=== PATIENT | female | born 1935 | race Caucasian/White ===

== ENCOUNTER 2018-11-30 14:53 | Inpatient (IN) | payer MEDICARE, OTHER ==
--- NOTE | 2018-11-30 14:54 | EDM.PDOC ---
ED HPI GENERAL MEDICAL PROBLEM - General Chief Complaint: Gastrointestinal Problem Stated Complaint: AMBULANCE Time Seen by Provider: 11/30/18 14:40 Source of Information: Reports: Patient History Limitations: Reports: No Limitations - History of Present Illness INITIAL COMMENTS - FREE TEXT/NARRATIVE: This 83 yo female patient was brought to the ED by her due to her not feeling well and having high blood sugar levels. The patient reports her blood sugar levels have been running high for the past 3 days. The patient reports her made her come in today due to her blood sugar levels and her not feeling well. The patient reports she does have an insulin pump, changed sites yesterday, but has continued to have high blood sugar levels. The patient reports she had the "flu" after her children left (no fever, no vomiting, but had nausea and diarrhea for several days). The patient reports no additional problems or current concerns. Duration: Day(s):, Constant Location: Reports: Generalized Quality: Reports: Other Severity: Moderate Improves with: Reports: None Worsens with: Reports: None Context: Reports: Other Associated Symptoms: Reports: Weakness, Other - Related Data Allergies Allergy/AdvReac Type Severity Reaction Status Date / Time hydrocodone Allergy Nausea and Verified 11/30/18 15:03 Vomiting Home Meds: Home Meds Alendronate [Fosamax] 70 mg PO DAILY 07/27/14 [History] Aspirin 325 mg PO DAILY 07/27/14 [History] Furosemide [Lasix] 20 mg PO DAILY 07/27/14 [History] Insulin Lispro [HumaLOG] 5 - 7 units SL ASDIRECTED 07/27/14 [History] Isosorbide Mononitrate [Isosorbide Mononitrate ER] 30 mg PO DAILY 07/27/14 [ History] Losartan [Cozaar] 100 mg PO BEDTIME 07/27/14 [History] Multivitamin with Minerals [Multiple Vitamin] 2 cap PO DAILY 07/27/14 [History] Sertraline [Zoloft] 50 mg PO DAILY 07/27/14 [History] amLODIPine [Norvasc] 10 mg PO DAILY 07/27/14 [History] atorvaSTATin [Lipitor] 40 mg PO DAILY 07/27/14 [History] hydrALAZINE [Apresoline] 50 mg PO TID 07/27/14 [History] Past Medical History HEENT History: Reports: Impaired Vision Cardiovascular History: Reports: CAD, High Cholesterol, Hypertension, [place], Stents Psychiatric History: Reports: Depression Endocrine/Metabolic History: Reports: Diabetes, Type I, Hypothyroidism, Osteoporosis Oncologic (Cancer) History: Reports: Thyroid - Past Surgical History HEENT Surgical History: Reports: Cataract Surgery Musculoskeletal Surgical History: Reports: Other (See Below) Social & Family History - Caffeine Use Caffeine Use: Reports: None - Living Situation & Occupation Living situation: Reports: , with Spouse Occupation: Retired ED ROS GENERAL - Review of Systems Review Of Systems: ROS reveals no pertinent complaints other than HPI. ED EXAM, GENERAL - Physical Exam Exam: See Below Exam Limited By: No Limitations General Appearance: Alert, WD/WN, Moderate Distress Eye Exam: Bilateral Eye: EOMI, Normal Inspection, PERRL Ears: Normal External Exam, Normal Canal, Hearing Grossly Normal, Normal TMs Nose: Normal Inspection, Normal Mucosa, No Blood Throat/Mouth: Normal Inspection, Normal Lips, Normal Teeth, Normal Gums, Normal Oropharynx, Normal Voice, No Airway Compromise Head: Atraumatic, Normocephalic Neck: Normal Inspection, Supple, Non-Tender, Full Range of Motion Respiratory/Chest: No Respiratory Distress, Lungs Clear, Normal Breath Sounds, No Accessory Muscle Use, Chest Non-Tender Cardiovascular: Normal Peripheral Pulses, Regular Rate, Rhythm, No Edema, No Gallop, No JVD, No Murmur, No Rub GI/Abdominal: Normal Bowel Sounds, Soft, Non-Tender, No Organomegaly, No Distention, No Abnormal Bruit, No Mass (Female) Exam: Deferred Rectal (Female) Exam: Deferred Back Exam: Normal Inspection, Full Range of Motion, NT Extremities: Normal Inspection, Normal Range of Motion, Non-Tender, Normal Capillary Refill, No Pedal Edema Neurological: Alert, Oriented, CN II-XII Intact, Normal Cognition, Normal Gait, Normal Reflexes, No Motor/Sensory Deficits Psychiatric: Normal Affect, Normal Mood Skin Exam: Warm, Dry, Intact, Normal Color, No Rash Lymphatic: No Adenopathy Course - Vital Signs Last Recorded V/S: Last Vital Signs Temp 36.4 C 11/30/18 14:35 Pulse 104 H 11/30/18 14:35 Resp 14 11/30/18 14:35 BP 153/89 H 11/30/18 14:35 Pulse Ox 96 11/30/18 14:35 - Orders/Labs/Meds Orders: Active Orders 24 hr Category Date Time Status EKG Documentation Completion [] URGENT Care 11/30/18 14:24 Ordered Glucose [Blood Glucose Check, Bedside] [] ONETIME Care 11/30/18 14:19 Ordered CULTURE BLOOD [] Stat Lab 11/30/18 14:19 Ordered Insulin Regular, Human [HumuLIN R] 100 unit Med 11/30/18 15:34 Ordered Sodium Chloride 0.9% [Normal Saline] 99 ml IV TITRATE Sodium Chloride 0.9% @ 125 MLS/HR (1000ml) Med 11/30/18 14:45 Ordered Sodium Chloride 0.9% [Normal Saline] 1,000 ml IV ASDIRECTED Medication Orders Sodium Chloride (Normal Saline) 1,000 mls @ 125 mls/hr IV ASDIRECTED ISAIAH Last Admin: 11/30/18 14:58 Dose: 125 mls/hr Labs: Laboratory Tests 11/30/18 11/30/18 11/30/18 Range/Units 14:30 14:36 14:36 WBC (5.0-10.0) 10^3/uL RBC (4.2-5.4) 10^6/uL Hgb (12.0-16.0) g/dL Hct (37.0-47.0) % MCV (80-100) fL MCH (27.0-34.0) pg MCHC (33.0-35.0) g/dL Plt Count (150-450) 10^3/uL Neut % (Auto) (42.2-75.2) % Lymph % (Auto) (20.5-50.1) % [place] % (Auto) (2-8) % Eos % (Auto) (1.0-3.0) % Baso % (Auto) (0.0-1.0) % Sodium (135-145) mmol/L Potassium (3.6-5.0) mmol/L Chloride (101-111) mmol/L Carbon Dioxide (21.0-31.0) mmol/L Anion Gap BUN (7-18) mg/dL Creatinine (0.6-1.3) mg/dL Est Cr Clr Drug Dosing mL/min Estimated GFR (MDRD) BUN/Creatinine Ratio Glucose (74-105) mg/dL POC Glucose > 500 H* (83-110) mg/dl Lactic Acid 2.5 H (0.5-2.2) mmol/L Calcium (8.4-10.2) mg/dl Total Bilirubin (0.2-1.0) mg/dL AST (10-42) IU/L ALT (10-60) IU/L Alkaline Phosphatase (42-121) IU/L Troponin I (0.00-0.02) ng/ml Total Protein (6.7-8.2) g/dl Albumin (3.2-5.5) g/dl Globulin Albumin/Globulin Ratio Amylase 82 (28-100) U/L Lipase 131 H (22-51) U/L Ketones 11/30/18 11/30/18 Range/Units 14:36 14:36 WBC 11.7 H (5.0-10.0) 10^3/uL RBC 4.19 L (4.2-5.4) 10^6/uL Hgb 12.6 (12.0-16.0) g/dL Hct 39.1 (37.0-47.0) % MCV 93.3 (80-100) fL MCH 30.1 (27.0-34.0) pg MCHC 32.2 L (33.0-35.0) g/dL Plt Count 346 (150-450) 10^3/uL Neut % (Auto) 85.5 H (42.2-75.2) % Lymph % (Auto) 9.1 L (20.5-50.1) % [place] % (Auto) 5.1 (2-8) % Eos % (Auto) 0.1 L (1.0-3.0) % Baso % (Auto) 0.2 (0.0-1.0) % Sodium 126 L (135-145) mmol/L Potassium 5.7 H (3.6-5.0) mmol/L Chloride 94 L (101-111) mmol/L Carbon Dioxide 15.0 L (21.0-31.0) mmol/L Anion Gap 22.7 BUN 47 H (7-18) mg/dL Creatinine 1.8 H (0.6-1.3) mg/dL Est Cr Clr Drug Dosing 17.31 mL/min Estimated GFR (MDRD) 27 BUN/Creatinine Ratio 26.11 Glucose 829 H* (74-105) mg/dL POC Glucose (83-110) mg/dl Lactic Acid (0.5-2.2) mmol/L Calcium 9.1 (8.4-10.2) mg/dl Total Bilirubin 1.1 H (0.2-1.0) mg/dL AST 40 (10-42) IU/L ALT 34 (10-60) IU/L Alkaline Phosphatase 119 (42-121) IU/L Troponin I 0.04 H* (0.00-0.02) ng/ml Total Protein 7.0 (6.7-8.2) g/dl Albumin 4.2 (3.2-5.5) g/dl Globulin 2.8 Albumin/Globulin Ratio 1.50 Amylase (28-100) U/L Lipase (22-51) U/L Ketones Negative Meds: Medications Generic Name Dose Route Start Last Admin Trade Name Freq PRN Reason Stop Dose Admin Sodium Chloride 1,000 mls @ 125 mls/hr 11/30/18 14:45 11/30/18 14:58 Normal Saline IV 125 mls/hr ASDIRECTED ISAIAH Administration Discontinued Medications Generic Name Dose Route Start Last Admin Trade Name Freq PRN Reason Stop Dose Admin Ondansetron HCl 4 mg 11/30/18 15:27 11/30/18 15:32 Zofran IV 11/30/18 15:28 4 mg ONETIME ONE Administration Departure - Departure Time of Disposition: 15:35 Disposition: Admitted As Inpatient 67 Condition: Poor Clinical Impression: Hyponatremia, Hyperkalemia, Hyperglycemia Chronic renal failure Qualifiers: Chronic kidney disease stage: stage 3 (moderate) Qualified Code(s): N18.3 - Chronic kidney disease, stage 3 (moderate) - Discharge Information *PRESCRIPTION DRUG MONITORING PROGRAM REVIEWED*: Not Applicable *COPY OF PRESCRIPTION DRUG MONITORING REPORT IN PATIENT POOJA: Not Applicable Forms: ED Department Discharge Care Plan Goals: Discussed the examination, history, labs and treatments with Dr. Saldana. Dr. Saldana accepted the patient as an observation patient. An insulin drip was started on the patient to begin at 10 units per hour prior to leaving the ED. - My Orders Last 24 Hours: My Active Orders 11/30/18 14:19 Glucose [Blood Glucose Check, Bedside] [RC] ONETIME CULTURE BLOOD [BC] Stat 11/30/18 14:24 EKG Documentation Completion [RC] URGENT 11/30/18 14:45 Sodium Chloride 0.9% @ 125 MLS/HR (1000ml) Sodium Chloride 0.9% [Normal Saline] 1,000 ml IV ASDIRECTED 11/30/18 15:34 Insulin Regular, Human [HumuLIN R] 100 unit Sodium Chloride 0.9% [Normal Saline] 99 ml IV TITRATE - Assessment/Plan Last 24 Hours: My Active Orders 11/30/18 14:19 Glucose [Blood Glucose Check, Bedside] [RC] ONETIME CULTURE BLOOD [BC] Stat 11/30/18 14:24 EKG Documentation Completion [RC] URGENT 11/30/18 14:45 Sodium Chloride 0.9% @ 125 MLS/HR (1000ml) Sodium Chloride 0.9% [Normal Saline] 1,000 ml IV ASDIRECTED 11/30/18 15:34 Insulin Regular, Human [HumuLIN R] 100 unit Sodium Chloride 0.9% [Normal Saline] 99 ml IV TITRATE
[2018-11-30] MEDS: Sodium Chloride 0.9% 1,000 ML IV SCH (14:58)
[2018-11-30 15:07] LABS: ANION GAP 22.7; CHLORIDE,CL 94 mmol/L (101-111); SODIUM,NA 126 mmol/L (135-145)
[2018-11-30] MEDS ORDERED: Ondansetron 4 MG/2 ML SDV IV ONE (15:27)
[2018-11-30] MEDS ORDERED: Acetaminophen 325 MG Tab PO PRN (16:31)
[2018-11-30] MEDS ORDERED: Temazepam 15 MG Cap PO PRN (16:31)
[2018-11-30] MEDS ORDERED: Ondansetron 4 MG/2 ML SDV IVPUSH PRN (16:31)
[2018-11-30] MEDS ORDERED: Ondansetron 4 MG Tab.DIS PO PRN (16:31)
--- NOTE | 2018-11-30 17:13 | PCM.HP ---
H&P History of Present Illness - General Date of Service: 11/30/18 Admit Problem/Dx: Admission Diagnosis/Problem Admission Diagnosis/Problem Hyperglycemia Source of Information: Patient - History of Present Illness Initial Comments - Free Text/Narative: 83-year-old lady with a history of diabetes, chronic kidney disease, hypertension, coronary artery disease The patient presented with elevated blood sugars. She has been using an insulin pump. She change site and cartridge on 29 November. Prior to this time her blood sugars have been running in the 100-200-300 range. Since the change blood sugars have been above 500. She had mild associated nausea. No chest pain, no shortness of breath, no abdominal pain, no diarrhea. - Related Data Allergies/Adverse Reactions: Allergies Allergy/AdvReac Type Severity Reaction Status Date / Time hydrocodone Allergy Nausea and Verified 11/30/18 15:03 Vomiting Home Medications: Home Meds Aspirin 325 mg PO DAILY 07/27/14 [History] Furosemide [Lasix] 20 mg PO DAILY 07/27/14 [History] Insulin Lispro [HumaLOG] 5 - 7 units SL ASDIRECTED 07/27/14 [History] Isosorbide Mononitrate [Isosorbide Mononitrate ER] 30 mg PO DAILY 07/27/14 [ History] Losartan [Cozaar] 100 mg PO BEDTIME 07/27/14 [History] Multivitamin with Minerals [Multiple Vitamin] 2 cap PO DAILY 07/27/14 [History] Sertraline [Zoloft] 50 mg PO DAILY 07/27/14 [History] atorvaSTATin [Lipitor] 40 mg PO BEDTIME 07/27/14 [History] hydrALAZINE [Apresoline] 50 mg PO TID 07/27/14 [History] Clopidogrel Bisulfate [Clopidogrel] 75 mg PO DAILY 11/30/18 [History] Levothyroxine [Synthroid] 100 mcg PO ACBREAKFAST 11/30/18 [History] Past Medical History HEENT History: Reports: Impaired Vision Cardiovascular History: Reports: CAD, High Cholesterol, Hypertension, [place], Stents Psychiatric History: Reports: Depression Endocrine/Metabolic History: Reports: Diabetes, Type I, Hypothyroidism, Osteoporosis Oncologic (Cancer) History: Reports: Thyroid - Past Surgical History HEENT Surgical History: Reports: Cataract Surgery Musculoskeletal Surgical History: Reports: Other (See Below) Social & Family History - Tobacco Use Smoking Status *Q: Never Smoker - Caffeine Use Caffeine Use: Reports: None - Recreational Drug Use Recreational Drug Use: No - Living Situation & Occupation Living situation: Reports: , with Spouse Occupation: Retired H&P Review of Systems - Review of Systems: Review Of Systems: See Below General: Denies: Fever, Chills Pulmonary: Denies: Shortness of Breath Cardiovascular: Denies: Chest Pain, Edema Psychiatric: Denies: Confusion Exam - Exam Exam: See Below - Vital Signs Vital Signs: Last Vital Signs Temp 36.2 C 11/30/18 15:53 Pulse 92 11/30/18 15:53 Resp 20 11/30/18 15:53 BP 140/32 L 11/30/18 15:53 Pulse Ox 99 11/30/18 15:53 Weight: 57.878 kg - Exam General: Alert, Oriented Neck: Supple Lungs: Clear to Auscultation, Normal Respiratory Effort Cardiovascular: Regular Rate, Regular Rhythm GI/Abdominal Exam: Normal Bowel Sounds, Soft, Non-Tender Skin: Warm, Dry Neuro Extensive - Mental Status: Alert, Oriented x3, Normal Mood/Affect - Patient Data Lab Results Last 24 hrs: Laboratory Results - last 24 hr 11/30/18 11/30/18 11/30/18 Range/Units 14:30 14:36 14:36 WBC (5.0-10.0) 10^3/uL RBC (4.2-5.4) 10^6/uL Hgb (12.0-16.0) g/dL Hct (37.0-47.0) % MCV (80-100) fL MCH (27.0-34.0) pg MCHC (33.0-35.0) g/dL Plt Count (150-450) 10^3/uL Neut % (Auto) (42.2-75.2) % Lymph % (Auto) (20.5-50.1) % [place] % (Auto) (2-8) % Eos % (Auto) (1.0-3.0) % Baso % (Auto) (0.0-1.0) % Sodium (135-145) mmol/L Potassium (3.6-5.0) mmol/L Chloride (101-111) mmol/L Carbon Dioxide (21.0-31.0) mmol/L Anion Gap BUN (7-18) mg/dL Creatinine (0.6-1.3) mg/dL Est Cr Clr Drug Dosing mL/min Estimated GFR (MDRD) BUN/Creatinine Ratio Glucose (74-105) mg/dL POC Glucose > 500 H* (83-110) mg/dl Lactic Acid 2.5 H (0.5-2.2) mmol/L Calcium (8.4-10.2) mg/dl Total Bilirubin (0.2-1.0) mg/dL AST (10-42) IU/L ALT (10-60) IU/L Alkaline Phosphatase (42-121) IU/L Troponin I (0.00-0.02) ng/ml Total Protein (6.7-8.2) g/dl Albumin (3.2-5.5) g/dl Globulin Albumin/Globulin Ratio Amylase 82 (28-100) U/L Lipase 131 H (22-51) U/L Ketones 11/30/18 11/30/18 11/30/18 Range/Units 14:36 14:36 16:14 WBC 11.7 H (5.0-10.0) 10^3/uL RBC 4.19 L (4.2-5.4) 10^6/uL Hgb 12.6 (12.0-16.0) g/dL Hct 39.1 (37.0-47.0) % MCV 93.3 (80-100) fL MCH 30.1 (27.0-34.0) pg MCHC 32.2 L (33.0-35.0) g/dL Plt Count 346 (150-450) 10^3/uL Neut % (Auto) 85.5 H (42.2-75.2) % Lymph % (Auto) 9.1 L (20.5-50.1) % [place] % (Auto) 5.1 (2-8) % Eos % (Auto) 0.1 L (1.0-3.0) % Baso % (Auto) 0.2 (0.0-1.0) % Sodium 126 L (135-145) mmol/L Potassium 5.7 H (3.6-5.0) mmol/L Chloride 94 L (101-111) mmol/L Carbon Dioxide 15.0 L (21.0-31.0) mmol/L Anion Gap 22.7 BUN 47 H (7-18) mg/dL Creatinine 1.8 H (0.6-1.3) mg/dL Est Cr Clr Drug Dosing 17.31 mL/min Estimated GFR (MDRD) 27 BUN/Creatinine Ratio 26.11 Glucose 829 H* (74-105) mg/dL POC Glucose > 500 H* (83-110) mg/dl Lactic Acid (0.5-2.2) mmol/L Calcium 9.1 (8.4-10.2) mg/dl Total Bilirubin 1.1 H (0.2-1.0) mg/dL AST 40 (10-42) IU/L ALT 34 (10-60) IU/L Alkaline Phosphatase 119 (42-121) IU/L Troponin I 0.04 H* (0.00-0.02) ng/ml Total Protein 7.0 (6.7-8.2) g/dl Albumin 4.2 (3.2-5.5) g/dl Globulin 2.8 Albumin/Globulin Ratio 1.50 Amylase (28-100) U/L Lipase (22-51) U/L Ketones Negative Result Diagrams: 11/30/18 14:36 11/30/18 14:36 - Problem List (1) Hyperglycemia SNOMED Code(s): 68574631 ICD Code: R73.9 - HYPERGLYCEMIA, UNSPECIFIED Status: Acute Current Visit : No (2) Hyperkalemia SNOMED Code(s): 48717523 ICD Code: E87.5 - HYPERKALEMIA Status: Acute Current Visit: No (3) Hyponatremia SNOMED Code(s): 95345366 ICD Code: E87.1 - HYPO-OSMOLALITY AND HYPONATREMIA Status: Acute Current Visit: No Problem List Initiated/Reviewed/Updated: Yes Orders Last 24hrs: Active Orders 24 hr Category Date Time Status Patient Status [ADT] Routine ADT 11/30/18 16:31 Ordered Antiembolic Devices [RC] PER UNIT ROUTINE Care 11/30/18 16:33 Ordered Glucose [Blood Glucose Check, Bedside] [RC] ONETIME Care 11/30/18 14:19 Active Oxygen Therapy [RC] PRN Care 11/30/18 16:31 Ordered Up With Assistance [RC] ASDIRECTED Care 11/30/18 16:31 Ordered VTE/DVT Education [RC] PER UNIT ROUTINE Care 11/30/18 16:31 Ordered Vital Signs [RC] Q4H Care 11/30/18 16:31 Ordered Consistent Carbohydrate Diet [DIET] Diet 11/30/18 Dinner Ordered BASIC METABOLIC PANEL,BMP [CHEM] AM Lab 12/01/18 05:15 Ordered BASIC METABOLIC PANEL,BMP [CHEM] Timed Lab 11/30/18 20:00 Ordered CBC WITH AUTO DIFF [HEME] AM Lab 12/01/18 05:15 Ordered CULTURE BLOOD [BC] Stat Lab 11/30/18 14:36 Received MAGNESIUM [CHEM] Timed Lab 11/30/18 20:00 Ordered PHOSPHORUS [CHEM] Timed Lab 11/30/18 20:00 Ordered Acetaminophen [Tylenol] Med 11/30/18 16:31 Ordered 650 mg PO Q4H PRN Aspirin Med 12/01/18 09:00 Ordered 325 mg PO DAILY Clopidogrel [Plavix] Med 12/01/18 09:00 Ordered 75 mg PO DAILY Furosemide [Lasix] Med 12/01/18 09:00 Ordered 20 mg PO DAILY Heparin Sodium Med 11/30/18 22:00 Ordered 5,000 units SUBCUT Q8HR Insulin Regular, Human [HumuLIN R] 100 unit Med 11/30/18 16:30 Ordered Sodium Chloride 0.9% [Normal Saline] 99 ml IV TITRATE Isosorbide Mononitrate [Imdur] Med 12/01/18 09:00 Ordered 30 mg PO DAILY Levothyroxine [Synthroid] Med 12/01/18 06:00 Ordered 100 mcg PO ACBREAKFAST Multivitamin with Minerals [Multiple Vitamin] Med 12/01/18 09:00 Ordered 2 cap PO DAILY Ondansetron [Zofran ODT] Med 11/30/18 16:31 Ordered 4 mg PO Q6H PRN Ondansetron [Zofran] Med 11/30/18 16:31 Ordered 4 mg IVPUSH Q4H PRN Sertraline [Zoloft] Med 12/01/18 09:00 Ordered 50 mg PO DAILY Sodium Chloride 0.9% [Normal Saline] 1,000 ml Med 11/30/18 14:45 Active IV ASDIRECTED Temazepam [Restoril] Med 11/30/18 16:31 Ordered 15 mg PO BEDTIME PRN atorvaSTATin [Lipitor] Med 11/30/18 21:00 Ordered 40 mg PO BEDTIME hydrALAZINE [Apresoline] Med 11/30/18 21:00 Ordered 50 mg PO TID Antiembolic Hose [OM.PC] Per Unit Routine Oth 11/30/18 16:32 Ordered Resuscitation Status Routine Resus Stat 11/30/18 16:31 Ordered Medication Orders Acetaminophen (Tylenol) 650 mg PO Q4H PRN PRN Reason: Pain (Mild 1-3)/fever Aspirin (Aspirin) 325 mg PO DAILY ISAIAH Atorvastatin Calcium (Lipitor) 40 mg PO BEDTIME ISAIAH Clopidogrel Bisulfate (Plavix) 75 mg PO DAILY ISAIAH Furosemide (Lasix) 20 mg PO DAILY ISAIAH Heparin Sodium (Porcine) (Heparin Sodium) 5,000 units SUBCUT Q8HR ISAIAH Hydralazine HCl (Apresoline) 50 mg PO TID ISAIAH Sodium Chloride (Normal Saline) 1,000 mls @ 125 mls/hr IV ASDIRECTED ISAIAH Last Admin: 11/30/18 14:58 Dose: 125 mls/hr Insulin Human Regular 100 unit (/ Sodium Chloride) 100 mls @ 10 mls/hr IV TITRATE ISAIAH; Protocol Isosorbide Mononitrate (Imdur) 30 mg PO DAILY ISAIAH Levothyroxine Sodium (Synthroid) 100 mcg PO ACBREAKFAST ISAIAH Multivitamins/Minerals (Vitamins And Minerals) 2 tab PO DAILY ISAIAH Ondansetron HCl (Zofran) 4 mg IVPUSH Q4H PRN PRN Reason: Nausea/Vomiting Ondansetron HCl (Zofran Odt) 4 mg PO Q6H PRN PRN Reason: nausea, able to take PO Sertraline HCl (Zoloft) 50 mg PO DAILY ISAIAH Temazepam (Restoril) 15 mg PO BEDTIME PRN PRN Reason: Sleep Assessment/Plan Comment:: 83-year-old lady who presented with elevated blood sugars following change of injection site and cartridge in her insulin pump. Hyperosmolar hyperglycemia Will hydrate the patient with IV fluid Start insulin drip Follow electrolytes and adjust fluids and replace electrolytes as needed Hyponatremia is pseudohyponatremia secondary to elevated blood sugars We'll follow with hydration and the control of blood sugars Hyperkalemia Will treat with insulin drip Hold losartan for now Elevated lipase Will recheck in the morning Hypertension Continue Norvasc, hydralazine Hold losartan for hyperkalemia Coronary artery disease Continue aspirin, Lipitor, imdur DVT prophylaxis with subcutaneous heparin
--- NOTE | 2018-11-30 17:34 | PCM.SN ---
- Free Text/Narrative Note: pt would like to be dnr.
[2018-11-30] MEDS ORDERED: Insulin Regular, Human 100 Units/ML 3 ML Vial ONE (19:27)
[2018-11-30 20:34] LABS: ANION GAP 16.1
[2018-11-30] MEDS ORDERED: atorvaSTATin 20 MG Tab PO SCH (21:00)
[2018-11-30] MEDS: hydrALAZINE 25 MG Tab PO SCH (21:03)
[2018-11-30] MEDS ORDERED: Phosphorus #1 250 MG Tab PO ONE (21:30)
[2018-11-30] MEDS: Heparin Sodium 5,000 Units/ML Vial SUBCUT SCH (21:45)
[2018-12-01] MEDS: 50% Dextrose in Water 50 ML Syringe IVPUSH PRN ×3 (02:10→07:06)
[2018-12-01] MEDS: Sodium Chloride 0.9% 1,000 ML IV SCH (05:37)
[2018-12-01] MEDS: Heparin Sodium 5,000 Units/ML Vial SUBCUT SCH (05:59)
[2018-12-01] MEDS ORDERED: Levothyroxine 100 MCG Tab PO SCH (06:00)
[2018-12-01 06:41] LABS: ANION GAP 13.9
[2018-12-01 07:59] VITALS: BP 151/41; PULSE 72
[2018-12-01] MEDS ORDERED: Sertraline 50 MG Tab PO SCH (09:00)
[2018-12-01] MEDS ORDERED: Furosemide 20 MG Tab PO SCH (09:00)
[2018-12-01] MEDS ORDERED: Clopidogrel 75 MG Tab PO SCH (09:00)
[2018-12-01] MEDS ORDERED: Aspirin 325 MG Tab PO SCH (09:00)
[2018-12-01] MEDS ORDERED: Isosorbide Mononitrate 30 MG Tab.ER PO SCH (09:00)
[2018-12-01] MEDS ORDERED: Multivitamins, Therapeutic with Minerals Tab PO SCH (09:00)
[2018-12-01] MEDS: hydrALAZINE 25 MG Tab PO SCH (10:01)
--- NOTE | 2018-12-01 10:43 | PCM.DCSUM1 ---
Discharge Summary - Hospital Course Free Text/Narrative:: 83-year-old with a history of coronary artery disease, diabetes. The patient has been on an insulin pump. Following changing her site and cartridge refill she developed elevated blood sugars in the 800 range. She was admitted with hyperglycemia, metabolic acidosis, hyperkalemia, acute renal failure. Today she says she would like to be discharged and the already arranged follow- up with her diabetic clinic. She would like to be resumed on her insulin pump as soon as possible but would like to see the diabetic educators first. Hyperosmolar hyperglycemia with mild DKA hydrated the patient with IV fluid BS was controlled with insulin drip Hyponatremia is pseudohyponatremia secondary to elevated blood sugars treated with IVF Hyperkalemia with MARISA (baseline cr. 1.2) during admission 1.8-2.1 treated with IVF Hold losartan hold lasix today will f/up with PMD in 2-3 days encourage fluids Hypertension Continue Norvasc, hydralazine Hold losartan for hyperkalemia, marisa Coronary artery disease Continue aspirin, plavix, Lipitor, imdur Diagnosis: Stroke: No - Discharge Data Discharge Date: 12/01/18 Discharge Disposition: Home, Self-Care 01 Condition: Stable - Discharge Diagnosis/Problem(s) (1) Hyperglycemia SNOMED Code(s): 91383878 ICD Code: R73.9 - HYPERGLYCEMIA, UNSPECIFIED Status: Acute Current Visit : No (2) Hyperkalemia SNOMED Code(s): 97609086 ICD Code: E87.5 - HYPERKALEMIA Status: Acute Current Visit: No (3) Hyponatremia SNOMED Code(s): 73713546 ICD Code: E87.1 - HYPO-OSMOLALITY AND HYPONATREMIA Status: Acute Current Visit: No - Patient Instructions Diet: Diabetic Diet Activity: As Tolerated - Discharge Plan *PRESCRIPTION DRUG MONITORING PROGRAM REVIEWED*: Not Applicable *COPY OF PRESCRIPTION DRUG MONITORING REPORT IN PATIENT POOJA: Not Applicable Home Medications: Home Meds Aspirin 325 mg PO DAILY 07/27/14 [History] Furosemide [Lasix] 20 mg PO DAILY 07/27/14 [History] Insulin Lispro [HumaLOG] 5 - 7 units SL ASDIRECTED 07/27/14 [History] Isosorbide Mononitrate [Isosorbide Mononitrate ER] 30 mg PO DAILY 07/27/14 [ History] Multivitamin with Minerals [Multiple Vitamin] 2 cap PO DAILY 07/27/14 [History] Sertraline [Zoloft] 50 mg PO DAILY 07/27/14 [History] atorvaSTATin [Lipitor] 40 mg PO BEDTIME 07/27/14 [History] hydrALAZINE [Apresoline] 50 mg PO TID 07/27/14 [History] Clopidogrel Bisulfate [Clopidogrel] 75 mg PO DAILY 11/30/18 [History] Levothyroxine [Synthroid] 100 mcg PO ACBREAKFAST 11/30/18 [History] Patient Handouts: Hyperglycemia, [id number] Referrals: Karin Viera PA [Primary Care Provider] - (in 2-3 days ) - Discharge Summary/Plan Comment DC Time >30 min.: No - General Info Date of Service: 12/01/18 Admission Dx/Problem (Free Text: Admission Diagnosis/Problem Admission Diagnosis/Problem Hyperglycemia Functional Status: Reports: Pain Controlled, Tolerating Diet - Review of Systems General: Denies: Fever, Weakness Pulmonary: Denies: Shortness of Breath Cardiovascular: Denies: Chest Pain Gastrointestinal: Denies: Abdominal Pain Neurological: Denies: Confusion - Patient Data Vitals - Most Recent: Last Vital Signs Temp 37.1 C 12/01/18 07:58 Pulse 72 12/01/18 07:58 Resp 20 12/01/18 07:58 BP 151/41 H 12/01/18 10:01 Pulse Ox 96 12/01/18 07:58 Weight - Most Recent: 57.878 kg I&O - Last 24 hours: Intake & Output 11/30/18 12/01/18 12/01/18 22:59 06:59 14:59 Intake Total 1040 1000 Output Total 100 300 Balance 940 1000 -300 Lab Results - Last 24 hrs: Laboratory Results - last 24 hr 11/30/18 11/30/18 11/30/18 Range/Units 14:30 14:36 14:36 WBC (5.0-10.0) 10^3/uL RBC (4.2-5.4) 10^6/uL Hgb (12.0-16.0) g/dL Hct (37.0-47.0) % MCV (80-100) fL MCH (27.0-34.0) pg MCHC (33.0-35.0) g/dL Plt Count (150-450) 10^3/uL Neut % (Auto) (42.2-75.2) % Lymph % (Auto) (20.5-50.1) % [place] % (Auto) (2-8) % Eos % (Auto) (1.0-3.0) % Baso % (Auto) (0.0-1.0) % Sodium (135-145) mmol/L Potassium (3.6-5.0) mmol/L Chloride (101-111) mmol/L Carbon Dioxide (21.0-31.0) mmol/L Anion Gap BUN (7-18) mg/dL Creatinine (0.6-1.3) mg/dL Est Cr Clr Drug Dosing mL/min Estimated GFR (MDRD) BUN/Creatinine Ratio Glucose (74-105) mg/dL POC Glucose > 500 H* (83-110) mg/dl Lactic Acid 2.5 H (0.5-2.2) mmol/L Calcium (8.4-10.2) mg/dl Phosphorus (2.5-4.6) mg/dL Magnesium (1.8-2.5) mg/dL Total Bilirubin (0.2-1.0) mg/dL AST (10-42) IU/L ALT (10-60) IU/L Alkaline Phosphatase (42-121) IU/L Troponin I (0.00-0.02) ng/ml Total Protein (6.7-8.2) g/dl Albumin (3.2-5.5) g/dl Globulin Albumin/Globulin Ratio Amylase 82 (28-100) U/L Lipase 131 H (22-51) U/L Ketones 11/30/18 11/30/18 11/30/18 Range/Units 14:36 14:36 16:14 WBC 11.7 H (5.0-10.0) 10^3/uL RBC 4.19 L (4.2-5.4) 10^6/uL Hgb 12.6 (12.0-16.0) g/dL Hct 39.1 (37.0-47.0) % MCV 93.3 (80-100) fL MCH 30.1 (27.0-34.0) pg MCHC 32.2 L (33.0-35.0) g/dL Plt Count 346 (150-450) 10^3/uL Neut % (Auto) 85.5 H (42.2-75.2) % Lymph % (Auto) 9.1 L (20.5-50.1) % [place] % (Auto) 5.1 (2-8) % Eos % (Auto) 0.1 L (1.0-3.0) % Baso % (Auto) 0.2 (0.0-1.0) % Sodium 126 L (135-145) mmol/L Potassium 5.7 H (3.6-5.0) mmol/L Chloride 94 L (101-111) mmol/L Carbon Dioxide 15.0 L (21.0-31.0) mmol/L Anion Gap 22.7 BUN 47 H (7-18) mg/dL Creatinine 1.8 H (0.6-1.3) mg/dL Est Cr Clr Drug Dosing 17.31 mL/min Estimated GFR (MDRD) 27 BUN/Creatinine Ratio 26.11 Glucose 829 H* (74-105) mg/dL POC Glucose > 500 H* (83-110) mg/dl Lactic Acid (0.5-2.2) mmol/L Calcium 9.1 (8.4-10.2) mg/dl Phosphorus (2.5-4.6) mg/dL Magnesium (1.8-2.5) mg/dL Total Bilirubin 1.1 H (0.2-1.0) mg/dL AST 40 (10-42) IU/L ALT 34 (10-60) IU/L Alkaline Phosphatase 119 (42-121) IU/L Troponin I 0.04 H* (0.00-0.02) ng/ml Total Protein 7.0 (6.7-8.2) g/dl Albumin 4.2 (3.2-5.5) g/dl Globulin 2.8 Albumin/Globulin Ratio 1.50 Amylase (28-100) U/L Lipase (22-51) U/L Ketones Negative 11/30/18 11/30/18 11/30/18 Range/Units 17:16 18:11 19:15 WBC (5.0-10.0) 10^3/uL RBC (4.2-5.4) 10^6/uL Hgb (12.0-16.0) g/dL Hct (37.0-47.0) % MCV (80-100) fL MCH (27.0-34.0) pg MCHC (33.0-35.0) g/dL Plt Count (150-450) 10^3/uL Neut % (Auto) (42.2-75.2) % Lymph % (Auto) (20.5-50.1) % [place] % (Auto) (2-8) % Eos % (Auto) (1.0-3.0) % Baso % (Auto) (0.0-1.0) % Sodium (135-145) mmol/L Potassium (3.6-5.0) mmol/L Chloride (101-111) mmol/L Carbon Dioxide (21.0-31.0) mmol/L Anion Gap BUN (7-18) mg/dL Creatinine (0.6-1.3) mg/dL Est Cr Clr Drug Dosing mL/min Estimated GFR (MDRD) BUN/Creatinine Ratio Glucose (74-105) mg/dL POC Glucose > 500 H* > 500 H* > 500 H* (83-110) mg/dl Lactic Acid (0.5-2.2) mmol/L Calcium (8.4-10.2) mg/dl Phosphorus (2.5-4.6) mg/dL Magnesium (1.8-2.5) mg/dL Total Bilirubin (0.2-1.0) mg/dL AST (10-42) IU/L ALT (10-60) IU/L Alkaline Phosphatase (42-121) IU/L Troponin I (0.00-0.02) ng/ml Total Protein (6.7-8.2) g/dl Albumin (3.2-5.5) g/dl Globulin Albumin/Globulin Ratio Amylase (28-100) U/L Lipase (22-51) U/L Ketones 11/30/18 11/30/18 11/30/18 Range/Units 20:02 20:02 20:56 WBC (5.0-10.0) 10^3/uL RBC (4.2-5.4) 10^6/uL Hgb (12.0-16.0) g/dL Hct (37.0-47.0) % MCV (80-100) fL MCH (27.0-34.0) pg MCHC (33.0-35.0) g/dL Plt Count (150-450) 10^3/uL Neut % (Auto) (42.2-75.2) % Lymph % (Auto) (20.5-50.1) % [place] % (Auto) (2-8) % Eos % (Auto) (1.0-3.0) % Baso % (Auto) (0.0-1.0) % Sodium 126 L (135-145) mmol/L Potassium 4.1 D (3.6-5.0) mmol/L Chloride 96 L (101-111) mmol/L Carbon Dioxide 18.0 L (21.0-31.0) mmol/L Anion Gap 16.1 BUN 50 H (7-18) mg/dL Creatinine 1.9 H (0.6-1.3) mg/dL Est Cr Clr Drug Dosing 16.40 mL/min Estimated GFR (MDRD) 25 BUN/Creatinine Ratio Glucose 496 H* (74-105) mg/dL POC Glucose 487 H* 404 H* (83-110) mg/dl Lactic Acid (0.5-2.2) mmol/L Calcium 8.7 (8.4-10.2) mg/dl Phosphorus 2.0 L (2.5-4.6) mg/dL Magnesium 1.9 (1.8-2.5) mg/dL Total Bilirubin (0.2-1.0) mg/dL AST (10-42) IU/L ALT (10-60) IU/L Alkaline Phosphatase (42-121) IU/L Troponin I (0.00-0.02) ng/ml Total Protein (6.7-8.2) g/dl Albumin (3.2-5.5) g/dl Globulin Albumin/Globulin Ratio Amylase (28-100) U/L Lipase (22-51) U/L Ketones 11/30/18 11/30/18 11/30/18 Range/Units 22:10 22:57 23:33 WBC (5.0-10.0) 10^3/uL RBC (4.2-5.4) 10^6/uL Hgb (12.0-16.0) g/dL Hct (37.0-47.0) % MCV (80-100) fL MCH (27.0-34.0) pg MCHC (33.0-35.0) g/dL Plt Count (150-450) 10^3/uL Neut % (Auto) (42.2-75.2) % Lymph % (Auto) (20.5-50.1) % [place] % (Auto) (2-8) % Eos % (Auto) (1.0-3.0) % Baso % (Auto) (0.0-1.0) % Sodium 127 L (135-145) mmol/L Potassium 4.0 (3.6-5.0) mmol/L Chloride 96 L (101-111) mmol/L Carbon Dioxide 20.0 L (21.0-31.0) mmol/L Anion Gap 15.0 BUN 51 H (7-18) mg/dL Creatinine 2.1 H (0.6-1.3) mg/dL Est Cr Clr Drug Dosing 14.84 mL/min Estimated GFR (MDRD) 23 BUN/Creatinine Ratio Glucose 254 H (74-105) mg/dL POC Glucose 309 H 293 H (83-110) mg/dl Lactic Acid (0.5-2.2) mmol/L Calcium 8.6 (8.4-10.2) mg/dl Phosphorus (2.5-4.6) mg/dL Magnesium (1.8-2.5) mg/dL Total Bilirubin (0.2-1.0) mg/dL AST (10-42) IU/L ALT (10-60) IU/L Alkaline Phosphatase (42-121) IU/L Troponin I (0.00-0.02) ng/ml Total Protein (6.7-8.2) g/dl Albumin (3.2-5.5) g/dl Globulin Albumin/Globulin Ratio Amylase (28-100) U/L Lipase (22-51) U/L Ketones 12/01/18 12/01/18 12/01/18 Range/Units 00:06 00:56 01:55 WBC (5.0-10.0) 10^3/uL RBC (4.2-5.4) 10^6/uL Hgb (12.0-16.0) g/dL Hct (37.0-47.0) % MCV (80-100) fL MCH (27.0-34.0) pg MCHC (33.0-35.0) g/dL Plt Count (150-450) 10^3/uL Neut % (Auto) (42.2-75.2) % Lymph % (Auto) (20.5-50.1) % [place] % (Auto) (2-8) % Eos % (Auto) (1.0-3.0) % Baso % (Auto) (0.0-1.0) % Sodium (135-145) mmol/L Potassium (3.6-5.0) mmol/L Chloride (101-111) mmol/L Carbon Dioxide (21.0-31.0) mmol/L Anion Gap BUN (7-18) mg/dL Creatinine (0.6-1.3) mg/dL Est Cr Clr Drug Dosing mL/min Estimated GFR (MDRD) BUN/Creatinine Ratio Glucose (74-105) mg/dL POC Glucose 213 H 147 H 78 L (83-110) mg/dl Lactic Acid (0.5-2.2) mmol/L Calcium (8.4-10.2) mg/dl Phosphorus (2.5-4.6) mg/dL Magnesium (1.8-2.5) mg/dL Total Bilirubin (0.2-1.0) mg/dL AST (10-42) IU/L ALT (10-60) IU/L Alkaline Phosphatase (42-121) IU/L Troponin I (0.00-0.02) ng/ml Total Protein (6.7-8.2) g/dl Albumin (3.2-5.5) g/dl Globulin Albumin/Globulin Ratio Amylase (28-100) U/L Lipase (22-51) U/L Ketones 12/01/18 12/01/18 12/01/18 Range/Units 03:01 04:05 05:03 WBC (5.0-10.0) 10^3/uL RBC (4.2-5.4) 10^6/uL Hgb (12.0-16.0) g/dL Hct (37.0-47.0) % MCV (80-100) fL MCH (27.0-34.0) pg MCHC (33.0-35.0) g/dL Plt Count (150-450) 10^3/uL Neut % (Auto) (42.2-75.2) % Lymph % (Auto) (20.5-50.1) % [place] % (Auto) (2-8) % Eos % (Auto) (1.0-3.0) % Baso % (Auto) (0.0-1.0) % Sodium (135-145) mmol/L Potassium (3.6-5.0) mmol/L Chloride (101-111) mmol/L Carbon Dioxide (21.0-31.0) mmol/L Anion Gap BUN (7-18) mg/dL Creatinine (0.6-1.3) mg/dL Est Cr Clr Drug Dosing mL/min Estimated GFR (MDRD) BUN/Creatinine Ratio Glucose (74-105) mg/dL POC Glucose 144 H 215 H 184 H (83-110) mg/dl Lactic Acid (0.5-2.2) mmol/L Calcium (8.4-10.2) mg/dl Phosphorus (2.5-4.6) mg/dL Magnesium (1.8-2.5) mg/dL Total Bilirubin (0.2-1.0) mg/dL AST (10-42) IU/L ALT (10-60) IU/L Alkaline Phosphatase (42-121) IU/L Troponin I (0.00-0.02) ng/ml Total Protein (6.7-8.2) g/dl Albumin (3.2-5.5) g/dl Globulin Albumin/Globulin Ratio Amylase (28-100) U/L Lipase (22-51) U/L Ketones 12/01/18 12/01/18 12/01/18 Range/Units 05:58 06:05 06:05 WBC 15.8 H (5.0-10.0) 10^3/uL RBC 3.55 L (4.2-5.4) 10^6/uL Hgb 10.7 L D (12.0-16.0) g/dL Hct 31.5 L (37.0-47.0) % MCV 88.7 D (80-100) fL MCH 30.1 (27.0-34.0) pg MCHC 34.0 (33.0-35.0) g/dL Plt Count 311 (150-450) 10^3/uL Neut % (Auto) 73.8 (42.2-75.2) % Lymph % (Auto) 15.6 L (20.5-50.1) % [place] % (Auto) 10.1 H (2-8) % Eos % (Auto) 0.3 L (1.0-3.0) % Baso % (Auto) 0.2 (0.0-1.0) % Sodium 129 L (135-145) mmol/L Potassium 3.9 (3.6-5.0) mmol/L Chloride 100 L (101-111) mmol/L Carbon Dioxide 19.0 L (21.0-31.0) mmol/L Anion Gap 13.9 BUN 54 H (7-18) mg/dL Creatinine 1.9 H (0.6-1.3) mg/dL Est Cr Clr Drug Dosing 16.40 mL/min Estimated GFR (MDRD) 25 BUN/Creatinine Ratio Glucose 141 H (74-105) mg/dL POC Glucose 139 H (83-110) mg/dl Lactic Acid (0.5-2.2) mmol/L Calcium 8.2 L (8.4-10.2) mg/dl Phosphorus 4.0 (2.5-4.6) mg/dL Magnesium 2.0 (1.8-2.5) mg/dL Total Bilirubin (0.2-1.0) mg/dL AST (10-42) IU/L ALT (10-60) IU/L Alkaline Phosphatase (42-121) IU/L Troponin I (0.00-0.02) ng/ml Total Protein (6.7-8.2) g/dl Albumin (3.2-5.5) g/dl Globulin Albumin/Globulin Ratio Amylase (28-100) U/L Lipase (22-51) U/L Ketones 12/01/18 12/01/18 12/01/18 Range/Units 06:58 08:11 09:04 WBC (5.0-10.0) 10^3/uL RBC (4.2-5.4) 10^6/uL Hgb (12.0-16.0) g/dL Hct (37.0-47.0) % MCV (80-100) fL MCH (27.0-34.0) pg MCHC (33.0-35.0) g/dL Plt Count (150-450) 10^3/uL Neut % (Auto) (42.2-75.2) % Lymph % (Auto) (20.5-50.1) % [place] % (Auto) (2-8) % Eos % (Auto) (1.0-3.0) % Baso % (Auto) (0.0-1.0) % Sodium (135-145) mmol/L Potassium (3.6-5.0) mmol/L Chloride (101-111) mmol/L Carbon Dioxide (21.0-31.0) mmol/L Anion Gap BUN (7-18) mg/dL Creatinine (0.6-1.3) mg/dL Est Cr Clr Drug Dosing mL/min Estimated GFR (MDRD) BUN/Creatinine Ratio Glucose (74-105) mg/dL POC Glucose 136 H 248 H 310 H (83-110) mg/dl Lactic Acid (0.5-2.2) mmol/L Calcium (8.4-10.2) mg/dl Phosphorus (2.5-4.6) mg/dL Magnesium (1.8-2.5) mg/dL Total Bilirubin (0.2-1.0) mg/dL AST (10-42) IU/L ALT (10-60) IU/L Alkaline Phosphatase (42-121) IU/L Troponin I (0.00-0.02) ng/ml Total Protein (6.7-8.2) g/dl Albumin (3.2-5.5) g/dl Globulin Albumin/Globulin Ratio Amylase (28-100) U/L Lipase (22-51) U/L Ketones 06//19 Range/Units 10:03 WBC (5.0-10.0) 10^3/uL RBC (4.2-5.4) 10^6/uL Hgb (12.0-16.0) g/dL Hct (37.0-47.0) % MCV (80-100) fL MCH (27.0-34.0) pg MCHC (33.0-35.0) g/dL Plt Count (150-450) 10^3/uL Neut % (Auto) (42.2-75.2) % Lymph % (Auto) (20.5-50.1) % [place] % (Auto) (2-8) % Eos % (Auto) (1.0-3.0) % Baso % (Auto) (0.0-1.0) % Sodium (135-145) mmol/L Potassium (3.6-5.0) mmol/L Chloride (101-111) mmol/L Carbon Dioxide (21.0-31.0) mmol/L Anion Gap BUN (7-18) mg/dL Creatinine (0.6-1.3) mg/dL Est Cr Clr Drug Dosing mL/min Estimated GFR (MDRD) BUN/Creatinine Ratio Glucose (74-105) mg/dL POC Glucose 302 H (83-110) mg/dl Lactic Acid (0.5-2.2) mmol/L Calcium (8.4-10.2) mg/dl Phosphorus (2.5-4.6) mg/dL Magnesium (1.8-2.5) mg/dL Total Bilirubin (0.2-1.0) mg/dL AST (10-42) IU/L ALT (10-60) IU/L Alkaline Phosphatase (42-121) IU/L Troponin I (0.00-0.02) ng/ml Total Protein (6.7-8.2) g/dl Albumin (3.2-5.5) g/dl Globulin Albumin/Globulin Ratio Amylase (28-100) U/L Lipase (22-51) U/L Ketones Med Orders - Current: Current Medications Acetaminophen (Tylenol) 650 mg PO Q4H PRN PRN Reason: Pain (Mild 1-3)/fever Last Admin: 12/01/18 00:22 Dose: 650 mg Aspirin (Aspirin) 325 mg PO DAILY [facility] Last Admin: 12/01/18 09:58 Dose: 325 mg Atorvastatin Calcium (Lipitor) 40 mg PO BEDTIME [facility] Last Admin: 11/30/18 21:03 Dose: 40 mg Clopidogrel Bisulfate (Plavix) 75 mg PO DAILY [facility] Last Admin: 12/01/18 09:58 Dose: 75 mg Dextrose/Water (Dextrose 50% In Water) 50 ml IVPUSH ASDIRECTED PRN PRN Reason: Hypoglycemia Last Admin: 12/01/18 07:06 Dose: 50 ml Furosemide (Lasix) 20 mg PO DAILY [facility] Last Admin: 12/01/18 09:59 Dose: 20 mg Heparin Sodium (Porcine) (Heparin Sodium) 5,000 units SUBCUT Q8HR ISAIAH Last Admin: 12/01/18 05:59 Dose: 5,000 units Hydralazine HCl (Apresoline) 50 mg PO TID [facility] Last Admin: 12/01/18 10:01 Dose: 50 mg Sodium Chloride (Normal Saline) 1,000 mls @ 125 mls/hr IV ASDIRECTED [facility] Last Admin: 12/01/18 05:37 Dose: 125 mls/hr Insulin Human Regular 100 unit (/ Sodium Chloride) 100 mls @ 10 mls/hr IV TITRATE [facility]; Protocol Last Titration: 12/01/18 10:06 Dose: 4 unit/hr, 4 mls/hr Isosorbide Mononitrate (Imdur) 30 mg PO DAILY [facility] Last Admin: 12/01/18 10:00 Dose: 30 mg Levothyroxine Sodium (Synthroid) 100 mcg PO ACBREAKFAST [facility] Last Admin: 12/01/18 05:59 Dose: 100 mcg Multivitamins/Minerals (Vitamins And Minerals) 2 tab PO DAILY [facility] Last Admin: 12/01/18 09:59 Dose: 1 tab Ondansetron HCl (Zofran) 4 mg IVPUSH Q4H PRN PRN Reason: Nausea/Vomiting Ondansetron HCl (Zofran Odt) 4 mg PO Q6H PRN PRN Reason: nausea, able to take PO Sertraline HCl (Zoloft) 50 mg PO DAILY [facility] Last Admin: 12/01/18 09:58 Dose: 50 mg Temazepam (Restoril) 15 mg PO BEDTIME PRN PRN Reason: Sleep Discontinued Medications Insulin Human Regular 100 unit (/ Sodium Chloride) 100 mls @ 10 mls/hr IV TITRATE [facility]; Protocol Last Infusion: 11/30/18 18:24 Dose: 12 unit/hr, 12 mls/hr Insulin Human Regular (Humulin R) Confirm Administered Dose 300 unit .ROUTE .STK -MED ONE Stop: 11/30/18 19:28 Last Admin: 11/30/18 19:34 Dose: Not Given Ondansetron HCl (Zofran) 4 mg IV ONETIME ONE Stop: 11/30/18 15:28 Last Admin: 11/30/18 15:32 Dose: 4 mg Sodium Phosphate (Neutra-Phos) 500 mg PO ONETIME ONE Stop: 11/30/18 21:31 Last Admin: 11/30/18 21:17 Dose: 500 mg - Exam General: Reports: Alert, Oriented Neck: Reports: Supple Lungs: Reports: Clear to Auscultation, Normal Respiratory Effort Cardiovascular: Reports: Regular Rate, Regular Rhythm GI/Abdominal Exam: Normal Bowel Sounds, Soft, Non-Tender Extremities: No Pedal Edema Skin: Reports: Warm, Dry Neurological: Reports: No New Focal Deficit Psy/Mental Status: Reports: Alert, Normal Affect, Normal Mood
== END 2018-12-01 11:25 | disposition home or self-care (01) | DRG 638 ==
LOC: DL.ED 14:53 → DL.MS 15:51 → UNDOADMIN 15:51 → DL.MS 16:31
PROVIDERS: ADMIT Internal Medicine; ATTEND Internal Medicine
DX: E10.10 Type 1 diabetes mellitus with ketoacidosis without coma (principal); E87.1 Hypo-osmolality and hyponatremia; E10.65 Type 1 diabetes mellitus with hyperglycemia; N17.9 Acute kidney failure, unspecified; E87.5 Hyperkalemia; E10.22 Type 1 diabetes mellitus with diabetic chronic kidney disease; I12.9 Hypertensive chronic kidney disease with stage 1 through stage 4 chronic kidney disease, or unspecified chronic kidney disease; N18.3 Chronic kidney disease, stage 3 (moderate); I25.10 Atherosclerotic heart disease of native coronary artery without angina pectoris; E03.9 Hypothyroidism, unspecified; E78.00 Pure hypercholesterolemia, unspecified; F32.9 Major depressive disorder, single episode, unspecified; M81.0 Age-related osteoporosis without current pathological fracture; H54.7 Unspecified visual loss; I25.2 Old myocardial infarction; Z95.5 Presence of coronary angioplasty implant and graft; Z79.82 Long term (current) use of aspirin; Z79.4 Long term (current) use of insulin; R53.1 Weakness; Z79.899 Other long term (current) drug therapy; Z88.5 Allergy status to narcotic agent; Z85.850 Personal history of malignant neoplasm of thyroid; Z66 Do not resuscitate; Z96.41 Presence of insulin pump (external) (internal); Z79.890 Hormone replacement therapy
CPT/HCPCS: 36415; 80053; 82009; 82150; 82962 ×2; 83605; 83690; 84484; 85025; 87040; 93005; J1815; J2405; J7030; J7050; 80048; 83735; 84100; 96365; 96375; 99283; 99285-25; A9270-GY; J1644

== ENCOUNTER 2019-07-12 08:39 | Emergency (ER) | payer MEDICARE, OTHER ==
[~2019-07-12 08:39] MED LIST: Sodium Chloride 0.9% 10 ML Syringe FLUSH PRN
[2019-07-12 08:56] VITALS: BP 203/59; PULSE 50
[2019-07-12] MEDS ORDERED: Ondansetron 4 MG/2 ML SDV IV ONE ×2 (09:01→09:55)
--- NOTE | 2019-07-12 09:01 | EDM.PDOC ---
ED HPI GENERAL MEDICAL PROBLEM - General Chief Complaint: Gastrointestinal Problem Stated Complaint: AMBULANCE Time Seen by Provider: 07/12/19 08:50 Source of Information: Reports: Patient, EMS, Old Records, RN, RN Notes Reviewed History Limitations: Reports: No Limitations - History of Present Illness INITIAL COMMENTS - FREE TEXT/NARRATIVE: Pt arrives to ER from home by ambulance with c/o sudden onset of "room spin" dizziness with nausea and vomiting at approx. 0530HRS this morning. She denies abdominal pain, chest pain, shortness of breath, headache, fever, congestion, ear pain, hearing loss or change, or any other symptoms. Pt is very anxious because her last heart attack occurred with the very same symptoms, and was not associated with chest pain. Pt has Hx of DM, isolated systolic HTN, CAD with SC x2, hyperlipidemia, and hypothyroidism. Onset: Gradual Duration: Constant Location: Reports: Abdomen Severity: Moderate Improves with: Reports: None Worsens with: Reports: Eating Associated Symptoms: Reports: No Other Symptoms - Related Data Allergies Allergy/AdvReac Type Severity Reaction Status Date / Time hydrocodone Allergy Nausea and Verified 07/12/19 08:46 Vomiting Home Meds: Home Meds Aspirin 325 mg PO DAILY 07/27/14 [History] Furosemide [Lasix] 20 mg PO DAILY 07/27/14 [History] Insulin Lispro [HumaLOG] 5 - 7 units SL ASDIRECTED 07/27/14 [History] Isosorbide Mononitrate [Isosorbide Mononitrate ER] 30 mg PO DAILY 07/27/14 [ History] Multivitamin with Minerals [Multiple Vitamin] 2 cap PO DAILY 07/27/14 [History] Sertraline [Zoloft] 50 mg PO DAILY 07/27/14 [History] atorvaSTATin [Lipitor] 40 mg PO BEDTIME 07/27/14 [History] hydrALAZINE [Apresoline] 50 mg PO TID 07/27/14 [History] Clopidogrel Bisulfate [Clopidogrel] 75 mg PO DAILY 11/30/18 [History] Levothyroxine [Synthroid] 100 mcg PO ACBREAKFAST 11/30/18 [History] Past Medical History HEENT History: Reports: Impaired Vision Cardiovascular History: Reports: CAD, High Cholesterol, Hypertension, [place], Stents Respiratory History: Reports: None [employer]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: Psychiatric History: Reports: Depression Endocrine/Metabolic History: Reports: Diabetes, Type I, Hypothyroidism, Osteoporosis Hematologic History: Reports: None Immunologic History: Reports: None Oncologic (Cancer) History: Reports: Thyroid - Infectious Disease History Infectious Disease History: Reports: Chicken Pox, Measles - Past Surgical History HEENT Surgical History: Reports: Cataract Surgery Musculoskeletal Surgical History: Reports: Other (See Below) Social & Family History - Family History Family Medical History: Noncontributory - Caffeine Use Caffeine Use: Reports: None - Living Situation & Occupation Living situation: Reports: , with Spouse Occupation: Retired ED ROS GENERAL - Review of Systems Review Of Systems: Comprehensive ROS is negative, except as noted in HPI. ED EXAM, GI/ABD - Physical Exam Exam: See Below Exam Limited By: No Limitations General Appearance: Alert, No Apparent Distress, Anxious Eyes: Bilateral: Nystagmus (Rt lateral gaze) Ears: Hearing Grossly Normal Nose: Normal Inspection, Normal Mucosa, No Blood Throat/Mouth: Normal Inspection, Normal Lips, Normal Oropharynx, Normal Voice, No Airway Compromise Head: Atraumatic, Normocephalic Neck: Normal Inspection, Non-Tender, Full Range of Motion Respiratory/Chest: No Respiratory Distress, Lungs Clear, Normal Breath Sounds, No Accessory Muscle Use, Chest Non-Tender Cardiovascular: No Edema, No JVD, Bradycardia, Systolic Murmur (1/6) GI/Abdominal Exam: Normal Bowel Sounds, Soft, Non-Tender, No Organomegaly, No Distention, No Abnormal Bruit, No Mass, Pelvis Stable Back Exam: Normal Inspection Extremities: Normal Inspection, Normal Range of Motion, Non-Tender, Normal Capillary Refill, No Pedal Edema Neurological: Alert, Oriented, CN II-XII Intact, No Motor/Sensory Deficits Psychiatric: Anxious Skin Exam: Warm, Dry, Intact, Normal Color, No Rash EKG INTERPRETATION EKG Date: 07/12/19 Time: 08:47 Rhythm: Other (SR with PVC) Rate (Beats/Min): 59 [place]: LAD-Left [place] Deviation P-Wave: Present QRS: LBBB ST-T: Normal QT: Normal Comparison: No Change Course - Vital Signs Last Recorded V/S: Last Vital Signs Temp 97.5 F 07/12/19 08:47 Pulse 50 L 07/12/19 08:47 Resp 18 07/12/19 08:47 BP 203/59 H 07/12/19 08:47 Pulse Ox 98 07/12/19 08:47 - Orders/Labs/Meds Orders: Active Orders 24 hr Category Date Time Status EKG 12 Lead [EKG Documentation Completion] [RC] STAT Care 07/12/19 08:38 Active Peripheral IV Care [RC] . DIRECTED Care 07/12/19 08:39 Active Head wo Cont [CT] Stat Exams 07/12/19 09:41 Taken UA RFX ZAHRA AND CULT IF INDIC [URIN] Stat Lab 07/12/19 08:39 Ordered Heparin Sodium/0.45% NaCl [Heparin 25,000 Units in 1/2 Med 07/12/19 09:30 Active NS 500 ML] 25,000 units in 500 ml IV TITRATE Sodium Chloride 0.9% [Normal Saline] 500 ml Med 07/12/19 09:15 Active IV .BOLUS Sodium Chloride 0.9% [Saline Flush] Med 07/12/19 08:38 Active 10 ml FLUSH ASDIRECTED PRN Peripheral IV Insertion Adult [OM.PC] Stat Oth 07/12/19 08:38 Ordered Medication Orders Sodium Chloride (Normal Saline) 500 mls @ 999 mls/hr IV .BOLUS ISAIAH Last Admin: 07/12/19 09:08 Dose: 999 mls/hr Heparin Sodium/Sodium Chloride (Heparin 25,000 Units In 1/2 Ns 500 Ml) 25,000 units in 500 mls @ 14.064 mls/hr IV TITRATE ISAIAH; Protocol Last Admin: 07/12/19 09:37 Dose: 12 units/kg/hr, 14.064 mls/hr Sodium Chloride (Saline Flush) 10 ml FLUSH ASDIRECTED PRN PRN Reason: Keep Vein Open Last Admin: 07/12/19 09:06 Dose: 10 ml Labs: Laboratory Tests 07/12/19 07/12/19 07/12/19 Range/Units 08:47 08:47 08:47 WBC 7.5 (5.0-10.0) 10^3/uL RBC 4.34 (4.2-5.4) 10^6/uL Hgb 13.1 D (12.0-16.0) g/dL Hct 38.4 (37.0-47.0) % MCV 88.5 (80-100) fL MCH 30.2 (27.0-34.0) pg MCHC 34.1 (33.0-35.0) g/dL Plt Count 243 (150-450) 10^3/uL Neut % (Auto) 66.0 (42.2-75.2) % Lymph % (Auto) 22.5 (20.5-50.1) % [place] % (Auto) 9.0 H (2-8) % Eos % (Auto) 2.1 (1.0-3.0) % Baso % (Auto) 0.4 (0.0-1.0) % PT 9.7 (9.0-12.0) SEC INR 0.9 (0.9-1.2) APTT 24.8 (22.0-34.0) SEC Sodium 135 (135-145) mmol/L Potassium 3.7 (3.6-5.0) mmol/L Chloride 104 (101-111) mmol/L Carbon Dioxide 22.0 (21.0-31.0) mmol/L Anion Gap 12.7 BUN 34 H (7-18) mg/dL Creatinine 1.0 (0.6-1.3) mg/dL Est Cr Clr Drug Dosing 31.15 mL/min Estimated GFR (MDRD) 53 BUN/Creatinine Ratio 34.00 Glucose 210 H (74-105) mg/dL Lactic Acid (0.5-2.0) mmol/L Calcium 9.6 (8.4-10.2) mg/dl Total Bilirubin 0.6 (0.2-1.0) mg/dL AST 35 (10-42) IU/L ALT 27 (10-60) IU/L Alkaline Phosphatase 110 (42-121) IU/L Troponin I 0.08 H* (0.00-0.02) ng/ml B-Natriuretic Peptide 337 H (0-100) pg/ml Total Protein 7.1 (6.7-8.2) g/dl Albumin 4.0 (3.2-5.5) g/dl Globulin 3.1 Albumin/Globulin Ratio 1.29 Amylase 77 (28-100) U/L Lipase 70 H (22-51) U/L Ketones 07/12/19 07/12/19 Range/Units 08:47 08:47 WBC (5.0-10.0) 10^3/uL RBC (4.2-5.4) 10^6/uL Hgb (12.0-16.0) g/dL Hct (37.0-47.0) % MCV (80-100) fL MCH (27.0-34.0) pg MCHC (33.0-35.0) g/dL Plt Count (150-450) 10^3/uL Neut % (Auto) (42.2-75.2) % Lymph % (Auto) (20.5-50.1) % [place] % (Auto) (2-8) % Eos % (Auto) (1.0-3.0) % Baso % (Auto) (0.0-1.0) % PT (9.0-12.0) SEC INR (0.9-1.2) APTT (22.0-34.0) SEC Sodium (135-145) mmol/L Potassium (3.6-5.0) mmol/L Chloride (101-111) mmol/L Carbon Dioxide (21.0-31.0) mmol/L Anion Gap BUN (7-18) mg/dL Creatinine (0.6-1.3) mg/dL Est Cr Clr Drug Dosing mL/min Estimated GFR (MDRD) BUN/Creatinine Ratio Glucose (74-105) mg/dL Lactic Acid 0.8 (0.5-2.0) mmol/L Calcium (8.4-10.2) mg/dl Total Bilirubin (0.2-1.0) mg/dL AST (10-42) IU/L ALT (10-60) IU/L Alkaline Phosphatase (42-121) IU/L Troponin I (0.00-0.02) ng/ml B-Natriuretic Peptide (0-100) pg/ml Total Protein (6.7-8.2) g/dl Albumin (3.2-5.5) g/dl Globulin Albumin/Globulin Ratio Amylase (28-100) U/L Lipase (22-51) U/L Ketones Negative Meds: Medications Generic Name Dose Route Start Last Admin Trade Name Freq PRN Reason Stop Dose Admin Sodium Chloride 500 mls @ 999 mls/hr 07/12/19 09:15 07/12/19 09:08 Normal Saline IV 999 mls/hr .BOLUS ISAIAH Administration Heparin Sodium/Sodium Chloride 25,000 units in 500 mls @ 14.064 mls/hr 09:30 07/12/19 09:37 Heparin 25,000 Units In 1/2 Ns 500 Ml IV 12 units/kg/hr TITRATE ISAIAH 14.064 mls/hr Administration Protocol 12 UNITS/KG/HR Sodium Chloride 10 ml 07/12/19 08:38 07/12/19 09:06 Saline Flush FLUSH 10 ml ASDIRECTED PRN Administration Keep Vein Open Discontinued Medications Generic Name Dose Route Start Last Admin Trade Name Janice PRN Reason Stop Dose Admin Aspirin 324 mg 07/12/19 09:22 07/12/19 09:30 Aspirin PO 07/12/19 09:23 324 mg ONETIME ONE Administration Heparin Sodium (Porcine) 4,000 units 07/12/19 09:21 07/12/19 09:30 Heparin Sodium IVPUSH 07/12/19 09:22 4,000 units .BOLUS ONE Administration Lorazepam 0.5 mg 07/12/19 09:55 07/12/19 10:00 Ativan IVPUSH 07/12/19 09:56 0.5 mg ONETIME ONE Administration Ondansetron HCl 4 mg 07/12/19 09:01 07/12/19 09:06 Zofran IV 07/12/19 09:02 4 mg ONETIME ONE Administration Ondansetron HCl 4 mg 07/12/19 09:55 07/12/19 10:04 Zofran IV 07/12/19 09:56 4 mg ONETIME ONE Administration - Radiology Interpretation Free Text/Narrative:: [facility] Final Radiology Report Call: [phone] assistance Online chat: [email or web address] Name: ANITA STEVENS Age: 83Years F Date: 07/12/2019 SSN: -- : [id number] Study: XR CHEST 1 VIEW FRONTAL Requesting Physician: CATRACHITO RIVERA Images: 1 Addl Studies: Provided Clinical History: Contrast: Contrast Medium: Contrast Amount: Contrast Method: CONFIDENTIALITY STATEMENT This report is intended only for use by the referring physician, and only in accordance with law. If you received this in error, call [phone]. Page 1 of 1 PROCEDURE INFORMATION: Exam: XR Chest, 1 View Exam date and time: 07/12/2019 9:18 AM Age: 83 years old Clinical indication: Chest pain TECHNIQUE: Imaging protocol: XR of the chest Views: 1 view. COMPARISON: CR Chest 1V Frontal 06/18/2015 9:52 AM FINDINGS: Lungs: Unremarkable. No consolidation. Pleural space: Unremarkable. No pleural effusion. No pneumothorax. Heart/Mediastinum: The cardiomediastinal silhouette is fairly stable in appearance. Bones/joints: Degenerative changes again involve the spine and shoulders. A chronic fracture again involves the left humeral neck. IMPRESSION: No evidence for acute pulmonary disease. Thank you for allowing us to participate in the care of your patient. Dictated and Authenticated by: Mina Yee MD 07/12/2019 9:43 AM Central Time ([place] & [place]) [facility] Final Radiology Report Call: [phone] assistance Online chat: [email or web address] Name: ANITA STEVENS Age: 83Years F Date: 07/12/2019 SSN: -- : [id number] Study: CT HEAD WO Requesting Physician: CATRACHITO RIVERA Images: 138 Addl Studies: Provided Clinical History: nystagmus Contrast: Without Contrast Medium: Contrast Amount: Contrast Method: Page 1 of 2 PROCEDURE INFORMATION: Exam: CT Head Without Contrast Exam date and time: 07/12/2019 9:45 AM Age: 83 years old Clinical indication: Visual disturbance; Additional info: Nystagmus TECHNIQUE: Imaging protocol: Computed tomography of the head without contrast. Radiation optimization: All CT scans at this facility use at least one of these dose optimization techniques: automated exposure control; mA and/or kV adjustment per patient size (includes targeted exams where dose is matched to clinical indication); or iterative reconstruction. COMPARISON: No relevant prior studies available. FINDINGS: Brain: Patchy lucencies in the white matter are nonspecific but most suggestive of chronic microvascular ischemic disease. There is a lacunar infarct in the right cerebellum. There is no evidence for large acute cortical infarct. No intracranial hemorrhage or extraaxial collection is identified. There is no significant intracranial mass effect. Ventricles: The ventricles and sulci are mildly prominent, in concordance with mild global atrophy. Bones/joints: Unremarkable. No acute fracture. Sinuses: Visualized sinuses are unremarkable. No fluid levels. Mastoid air cells: Visualized mastoid air cells are well aerated. Soft tissues: Unremarkable. Vasculature: Intracranial atherosclerotic vascular calcifications are noted. IMPRESSION: No CT evidence for acute intracranial abnormality. ANITA STEVENS | Final Radiology Report CONFIDENTIALITY STATEMENT This report is intended only for use by the referring physician, and only in accordance with law. If you received this in error, call [phone]. Page 2 of 2 Thank you for allowing us to participate in the care of your patient. Dictated and Authenticated by: Mina Yee MD 07/12/2019 10:08 AM Central Time ([place] & [place]) Departure - Departure Time of Disposition: 10:01 Disposition: DC/Tfer to Acute Hospital 02 Condition: Serious Clinical Impression: Non-STEMI (non-ST elevated myocardial infarction) - Discharge Information *PRESCRIPTION DRUG MONITORING PROGRAM REVIEWED*: Not Applicable *COPY OF PRESCRIPTION DRUG MONITORING REPORT IN PATIENT POOJA: Not Applicable Forms: ED Department Discharge, [facility] Sepsis Event Note - Evaluation Sepsis Screening Result: No Definite Risk - Focused Exam Vital Signs: Vital Signs Temp Pulse Resp BP Pulse Ox 07/12/19 08:47 97.5 F 50 L 18 203/59 H 98 Date Exam was Performed: 07/12/19 Time Exam was Performed: 10:10 - My Orders Last 24 Hours: My Active Orders 07/12/19 08:38 EKG 12 Lead [EKG Documentation Completion] [RC] STAT Sodium Chloride 0.9% [Saline Flush] 10 ml FLUSH ASDIRECTED PRN Peripheral IV Insertion Adult [OM.PC] Stat 07/12/19 08:39 Peripheral IV Care [RC] . DIRECTED UA RFX ZAHRA AND CULT IF INDIC [URIN] Stat 07/12/19 09:15 Sodium Chloride 0.9% [Normal Saline] 500 ml IV .BOLUS 07/12/19 09:30 Heparin Sodium/0.45% NaCl [Heparin 25,000 Units in 1/2 NS 500 ML] 25,000 units in 500 ml IV TITRATE 07/12/19 09:41 Head wo Cont [CT] Stat - Assessment/Plan Last 24 Hours: My Active Orders 07/12/19 08:38 EKG 12 Lead [EKG Documentation Completion] [RC] STAT Sodium Chloride 0.9% [Saline Flush] 10 ml FLUSH ASDIRECTED PRN Peripheral IV Insertion Adult [OM.PC] Stat 07/12/19 08:39 Peripheral IV Care [RC] . DIRECTED UA RFX ZAHRA AND CULT IF INDIC [URIN] Stat 07/12/19 09:15 Sodium Chloride 0.9% [Normal Saline] 500 ml IV .BOLUS 07/12/19 09:30 Heparin Sodium/0.45% NaCl [Heparin 25,000 Units in 1/2 NS 500 ML] 25,000 units in 500 ml IV TITRATE 07/12/19 09:41 Head wo Cont [CT] Stat
[2019-07-12] MEDS ORDERED: Sodium Chloride 0.9% 500 ML IV SCH (09:15)
[2019-07-12 09:16] LABS: ANION GAP 12.7
[2019-07-12] MEDS ORDERED: Heparin Sodium 5,000 Units/ML Vial IVPUSH ONE (09:21)
[2019-07-12] MEDS ORDERED: Aspirin 81 MG Tab.Chew PO ONE (09:22)
[2019-07-12] MEDS ORDERED: Heparin Sodium/0.45% NaCl 25,000 UNITS/500 ML BAG IV SCH (09:30)
[2019-07-12] MEDS ORDERED: LORazepam 2 MG/ML SDV IVPUSH ONE (09:55)
== END 2019-07-12 10:45 ==
LOC: DL.ED 08:39
DX: I21.4 Non-ST elevation (NSTEMI) myocardial infarction (principal); E78.00 Pure hypercholesterolemia, unspecified; I10 Essential (primary) hypertension; I25.10 Atherosclerotic heart disease of native coronary artery without angina pectoris; I25.2 Old myocardial infarction; F32.9 Major depressive disorder, single episode, unspecified; E10.9 Type 1 diabetes mellitus without complications; E03.9 Hypothyroidism, unspecified; Z88.5 Allergy status to narcotic agent; Z79.82 Long term (current) use of aspirin; Z95.5 Presence of coronary angioplasty implant and graft; Z79.4 Long term (current) use of insulin; Z79.890 Hormone replacement therapy
CPT/HCPCS: 36415; 70450; 71045; 80053; 82009; 82150; 83605; 83690; 83880; 84484; 85025; 85610; 85730; 87804; 93005; 96365; 96375; 96376; 99285; A9270; J1644; J2060; J2405; J7040

== ENCOUNTER 2020-11-21 00:06 | Emergency (ER) | payer MEDICARE, OTHER ==
[2020-11-21] MEDS ORDERED: fentaNYL 100 MCG/2 ML SDV IVPUSH ONE ×2 (00:41→01:42)
[2020-11-21] MEDS ORDERED: Ondansetron 4 MG/2 ML SDV IVPUSH ONE (00:42)
--- NOTE | 2020-11-21 01:46 | EDM.PDOC ---
ED HPI GENERAL MEDICAL PROBLEM - General Chief Complaint: Lower Extremity Injury/Pain Stated Complaint: AMBULANCE Time Seen by Provider: 11/21/20 00:35 Source of Information: Reports: Patient, Family History Limitations: Reports: No Limitations - History of Present Illness INITIAL COMMENTS - FREE TEXT/NARRATIVE: ED via [facility] report of tripping over husbands feet and falling. Did not hit head, no loss of consciousness. Arrival alert oriented, Pain to left hip. Left Hip Pain Score (Numeric/FACES): 6 - Related Data Allergies Allergy/AdvReac Type Severity Reaction Status Date / Time hydrocodone Allergy Nausea and Verified 11/21/20 00:30 Vomiting Iodinated Contrast Media Allergy Hives Verified 11/21/20 00:30 tramadol Allergy Nausea Verified 11/21/20 00:30 Home Meds: Home Meds Aspirin 325 mg PO DAILY 07/27/14 [History] Furosemide [Lasix] 20 mg PO DAILY 07/27/14 [History] Insulin Lispro [HumaLOG] 5 - 7 units SL ASDIRECTED 07/27/14 [History] Isosorbide Mononitrate [Isosorbide Mononitrate ER] 30 mg PO DAILY 07/27/14 [History] Multivitamin with Minerals [Multiple Vitamin] 2 cap PO DAILY 07/27/14 [History] Sertraline [Zoloft] 50 mg PO DAILY 07/27/14 [History] atorvaSTATin [Lipitor] 40 mg PO BEDTIME 07/27/14 [History] hydrALAZINE [Apresoline] 50 mg PO TID 07/27/14 [History] Clopidogrel Bisulfate [Clopidogrel] 75 mg PO DAILY 11/30/18 [History] Levothyroxine [Synthroid] 100 mcg PO ACBREAKFAST 11/30/18 [History] Past Medical History HEENT History: Reports: Impaired Vision Cardiovascular History: Reports: CAD, High Cholesterol, Hypertension, [place], Stents Respiratory History: Reports: None 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: Neurological History: Reports: Seizure Psychiatric History: Reports: Depression Endocrine/Metabolic History: Reports: Diabetes, Type I, Hypothyroidism, Osteoporosis Hematologic History: Reports: None Immunologic History: Reports: None Oncologic (Cancer) History: Reports: Thyroid Dermatologic History: Reports: None - Infectious Disease History Infectious Disease History: Reports: Chicken Pox, Measles - Past Surgical History Head Surgeries/Procedures: Reports: None HEENT Surgical History: Reports: Cataract Surgery GI Surgical History: Reports: Appendectomy Female Surgical History: Reports: Hysterectomy Endocrine Surgical History: Reports: Thyroidectomy Musculoskeletal Surgical History: Reports: Other (See Below) Other Musculoskeletal Surgeries/Procedures:: metal plate in Left leg Social & Family History - Family History Family Medical History: No Pertinent Family History - Tobacco Use Tobacco Use Status *Q: Never Tobacco User Second Hand Smoke Exposure: No - Caffeine Use Caffeine Use: Reports: Coffee, Tea - Recreational Drug Use Recreational Drug Use: No - Living Situation & Occupation Living situation: Reports: , with Spouse Occupation: Retired Review of Systems - Review of Systems Review Of Systems: Comprehensive ROS is negative, except as noted in HPI. ED EXAM, GENERAL - Physical Exam Exam: See Below Exam Limited By: No Limitations General Appearance: Alert, Moderate Distress Eye Exam: Bilateral Eye: EOMI, PERRL Ears: Normal External Exam, Hearing Loss Nose: Normal Inspection Throat/Mouth: Normal Inspection, Normal Voice Head: Atraumatic, Normocephalic Neck: Normal Inspection Respiratory/Chest: No Respiratory Distress, Lungs Clear, Normal Breath Sounds Cardiovascular: Regular Rate, Rhythm GI/Abdominal: Normal Bowel Sounds, Soft Extremities: Other (Left hip pain, external rotation with shortening pedal pulses present bilaterally) Neurological: Alert, Oriented, Normal Cognition Psychiatric: Normal Affect, Normal Mood Skin Exam: Warm, Dry, Intact, Normal Color Course - Vital Signs Last Recorded V/S: Last Vital Signs Temp 98.7 F 11/21/20 00:29 Pulse 84 11/21/20 01:56 Resp 18 11/21/20 01:56 BP 130/100 H 11/21/20 01:56 Pulse Ox 91 L 11/21/20 01:56 - Orders/Labs/Meds Labs: Laboratory Tests 11/21/20 11/21/20 11/21/20 Range/Units 00:25 00:29 00:29 WBC 9.2 (5.0-10.0) 10^3/uL RBC 4.44 (4.2-5.4) 10^6/uL Hgb 13.3 (12.0-16.0) g/dL Hct 39.7 (37.0-47.0) % MCV 89.4 (80-100) fL MCH 30.0 (27.0-34.0) pg MCHC 33.5 (33.0-35.0) g/dL Plt Count 285 (150-450) 10^3/uL Neut % (Auto) 76.1 H (42.2-75.2) % Lymph % (Auto) 16.8 L (20.5-50.1) % [place] % (Auto) 5.9 (2-8) % Eos % (Auto) 1.0 (1.0-3.0) % Baso % (Auto) 0.2 (0.0-1.0) % PT 10.3 (9.0-12.0) SEC INR 1.0 (0.9-1.2) Sodium (136-145) mmol/L Potassium (3.5-5.1) mmol/L Chloride (98-107) mmol/L Carbon Dioxide (21-32) mmol/L Anion Gap (7-13) mEq/L BUN (7-18) mg/dL Creatinine (0.55-1.02) mg/dL Est Cr Clr Drug Dosing mL/min Estimated GFR (MDRD) BUN/Creatinine Ratio (No establ ref range) Glucose (70-99) mg/dL Calcium (8.5-10.1) mg/dL Total Bilirubin (0.2-1.0) mg/dL AST (15-37) U/L ALT (14-59) U/L Alkaline Phosphatase (46-116) U/L Total Protein (6.4-8.2) g/dL Albumin (3.4-5.0) g/dL Globulin Albumin/Globulin Ratio Urine Color Yellow (YELLOW) Urine Appearance Slightly cloudy (CLEAR) Urine pH 5.5 (5.0-9.0) Ur Specific [place] >= 1.030 (1.005-1.030) Urine Protein 100 H (NEGATIVE) Urine Glucose (UA) 500 H (NEGATIVE) Urine Ketones Negative (NEGATIVE) Urine Occult Blood Trace-intact H (NEGATIVE) Urine Nitrite Negative (NEGATIVE) Urine Bilirubin Negative (NEGATIVE) Urine Urobilinogen 0.2 (0.2-1.0) mg/dL Ur Leukocyte Esterase Negative (NEGATIVE) Urine RBC 5-10 H /HPF Urine WBC 0-5 (0-5/HPF) /HPF Ur Epithelial Cells Rare (NOT SEEN) /HPF Amorphous Sediment Rare (NOT SEEN) /HPF Urine Bacteria Rare (0-FEW/HPF) /HPF Urine Mucus Few H (NOT SEEN) /LPF 11/21/20 Range/Units 00:29 WBC (5.0-10.0) 10^3/uL RBC (4.2-5.4) 10^6/uL Hgb (12.0-16.0) g/dL Hct (37.0-47.0) % MCV (80-100) fL MCH (27.0-34.0) pg MCHC (33.0-35.0) g/dL Plt Count (150-450) 10^3/uL Neut % (Auto) (42.2-75.2) % Lymph % (Auto) (20.5-50.1) % [place] % (Auto) (2-8) % Eos % (Auto) (1.0-3.0) % Baso % (Auto) (0.0-1.0) % PT (9.0-12.0) SEC INR (0.9-1.2) Sodium 139 (136-145) mmol/L Potassium 5.0 (3.5-5.1) mmol/L Chloride 106 (98-107) mmol/L Carbon Dioxide 19 L (21-32) mmol/L Anion Gap 19.0 H (7-13) mEq/L BUN 52 H (7-18) mg/dL Creatinine 1.57 H (0.55-1.02) mg/dL Est Cr Clr Drug Dosing 19.16 mL/min Estimated GFR (MDRD) 31 BUN/Creatinine Ratio 33.1 (No establ ref range) Glucose 349 H (70-99) mg/dL Calcium 9.3 (8.5-10.1) mg/dL Total Bilirubin 0.3 (0.2-1.0) mg/dL AST 26 (15-37) U/L ALT 37 (14-59) U/L Alkaline Phosphatase 160 H (46-116) U/L Total Protein 7.1 (6.4-8.2) g/dL Albumin 3.6 (3.4-5.0) g/dL Globulin 3.5 Albumin/Globulin Ratio 1.0 Urine Color (YELLOW) Urine Appearance (CLEAR) Urine pH (5.0-9.0) Ur Specific [place] (1.005-1.030) Urine Protein (NEGATIVE) Urine Glucose (UA) (NEGATIVE) Urine Ketones (NEGATIVE) Urine Occult Blood (NEGATIVE) Urine Nitrite (NEGATIVE) Urine Bilirubin (NEGATIVE) Urine Urobilinogen (0.2-1.0) mg/dL Ur Leukocyte Esterase (NEGATIVE) Urine RBC /HPF Urine WBC (0-5/HPF) /HPF Ur Epithelial Cells (NOT SEEN) /HPF Amorphous Sediment (NOT SEEN) /HPF Urine Bacteria (0-FEW/HPF) /HPF Urine Mucus (NOT SEEN) /LPF Meds: Medications Discontinued Medications Generic Name Dose Route Start Last Admin Trade Name Freq PRN Reason Stop Dose Admin Fentanyl 50 mcg 11/21/20 00:41 11/21/20 00:52 Fentanyl 100 Mcg/2 Ml Sdv IVPUSH 11/21/20 00:42 50 mcg ONETIME ONE Administration Fentanyl 50 mcg 11/21/20 01:42 11/21/20 01:50 Fentanyl 100 Mcg/2 Ml Sdv IVPUSH 11/21/20 01:43 50 mcg ONETIME ONE Administration Ondansetron HCl 4 mg 11/21/20 00:42 11/21/20 00:52 Ondansetron 4 Mg/2 Ml Sdv IVPUSH 11/21/20 00:43 4 mg ONETIME ONE Administration - Re-Assessments/Exams Free Text/Narrative Re-Assessment/Exam: 11/21/20 01:[address] Crow Archuleta accepting of patient. Tx via [facility]. No bed available [facility] or [facility] Departure - Departure Time of Disposition: 02:05 Disposition: DC/Tfer to Acute Hospital 02 Condition: Fair Clinical Impression: Hip fracture, left Qualifiers: Encounter type: initial encounter Fracture type: closed Qualified Code(s): S72.002A - Fracture of unspecified part of neck of left femur, initial encounter for closed fracture - Discharge Information Referrals: PCP,None [Primary Care Provider] - Forms: ED Department Discharge Sepsis Event Note (ED) - Evaluation Sepsis Screening Result: No Definite Risk
[2020-11-21 01:57] VITALS: BP 130/100; PULSE 84
--- NOTE | 2020-11-21 02:47 | CT ---
PROCEDURE INFORMATION: Exam: CT Pelvis Without Contrast; Skeletal Exam date and time: 11/21/2020 1:09 AM Age: 85 years old Clinical indication: Injury or trauma; Fall; Blunt trauma (contusions or hematomas); Left; Hip; Additional info: Fall left hip pain TECHNIQUE: Imaging protocol: Computed tomography images of the pelvis without contrast. Exam focused on the skeletal structures. Radiation optimization: All CT scans at this facility use at least one of these dose optimization techniques: automated exposure control; mA and/or kV adjustment per patient size (includes targeted exams where dose is matched to clinical indication); or iterative reconstruction. COMPARISON: No relevant prior studies available. FINDINGS: Bladder: Lowery catheter in bladder. Reproductive: Right ovarian cyst measuring 3.9 cm. Nonemergent pelvic ultrasound suggested. Intraperitoneal space: No pelvic mass or fluid collection. Bones/joints: Acute displaced left femoral neck fracture with varus deformity. No evidence for acetabular fracture Soft tissues: Unremarkable. IMPRESSION: 1. Acute displaced fracture of the left femoral neck with varus deformity. 2. Right ovarian cyst measuring 3.9 cm. Nonemergent pelvic ultrasound suggested.
== END 2020-11-21 02:05 ==
LOC: DL.ED 00:06
DX: S72.002A Fracture of unspecified part of neck of left femur, initial encounter for closed fracture (principal); I25.10 Atherosclerotic heart disease of native coronary artery without angina pectoris; E78.00 Pure hypercholesterolemia, unspecified; E10.9 Type 1 diabetes mellitus without complications; I25.2 Old myocardial infarction; I10 Essential (primary) hypertension; E03.9 Hypothyroidism, unspecified; Z95.5 Presence of coronary angioplasty implant and graft; Z79.899 Other long term (current) drug therapy; Z88.5 Allergy status to narcotic agent; Z91.041 Radiographic dye allergy status; Z79.82 Long term (current) use of aspirin; W01.0XXA Fall on same level from slipping, tripping and stumbling without subsequent striking against object, initial encounter
CPT/HCPCS: 36415; 51702; 72192; 80053; 81001; 85025; 85610; 96374; 96375; 96376; 99284; 99284-25; J2405; J3010